=== PATIENT | female | born 2005 ===

== ENCOUNTER → 2025-03-09 23:59 | Outpatient (BNV) | payer OTHER, SELFPAY ==
--- NOTE | 2025-03-11 10:04 | MHC.OFFVIS ---
Intake Visit Reasons: follow up HPI Comments Details: Lois stops me and states that student needs to see the nurse, even though no orientation done.? Has a lot of coughing and runny nose - directed to do covid test and when she comes to my office this is negative.? She is due in May and states that she is having contractions.? She states later in the visit that she has been trying to hydrate and is drinking a lot but it is not stopping the contractions,? she worries that her scar will open.? She is coughing a lot loose coughing,? states her daughter is sick at home in the care of her who is not sick.? She feels chills intermittently hot/cold - she is afebrile 98.5.? states she had asthma as a child but not since then - her lungs are clear - she has a cramping while sitting and wait to move. She states also that she is getting sciatic from his kicking.? She was dizzy upon standing.? She state that she called [facility] and they told her that they don?t have any openings- that someone would call her back before 5 but if there?s a problem she should go to the ER.? She was excused to go home and rest and continue to hydrate but after one hour if contractions continue she should go to 2.? She agrees O: She appears mostly comfortable - though coughing and not feeling well - when she is having a ?contraction? - she is grimacing and holding her lower pubic area and her left side back.? Lungs are clear, color is good - covid screen negative.? 98.5.? A: w/ URI symptoms, cramping intermittently continues -? P: she is to go home and likely go to as she is already pretty well hydrated. She has Tylenol and other supplies/food at home.? She states that the feeling she is having is similar to her daughter?s labor - and she is worried so was advised to go to ER rather than wait too long.? is at home for support. Review of Systems Const All systems reviewed & are unremarkable except as noted in HPI and below Reports as per HPI and Reports no additional complaints Eyes Reports no additional complaints ENT Reports as per HPI and Reports Normal hearing present Card Reports no additional complaints Resp Reports chest congestion and Reports cough Reports no additional complaints Musc Reports no additional complaints Skin/Breast Reports system reviewed and no additional complaints, except as documented Neuro Reports no additional complaints and Reports Normal hearing present Psych Reports no additional complaints Physical Exam afebrile Const Other: mostly comfortable - no serious distress, but she is coughing and has a runny nose. when having contraction - holding lower pubic area and lower left side back General: cooperative Nutritional Appearance: average body habitus Orientation/consciousness: patient oriented x3 HEENT Ears: hearing grossly normal bilaterally General nose exam: Nasal discharge present purulent Face and sinus: Yes sinuses nontender Mouth: Normal oral and palatal mucosa present Teeth and gingiva: dentition normal Throat: Yes posterior oropharynx normal Resp Effort & Inspection: normal respiratory effort, able to speak in complete sentences and Actively coughing (loose - no wheezing) Quality: actively coughing Cardio Rate: regular rate Rhythm: regular rhythm Other: she had a contraction like feeling when she was leaving the office - before standing up, I could not feel any hardening of uterus but instructed her to reach out a gain to her midwives Skin General skin exam: no rashes or lesions noted Neuro General: patient oriented x3 Cranial nerves: Yes Normal hearing present Psych Appearance: grossly normal Assessment & Plan Assessment & Plan (1) Upper respiratory infection: Code(s): J06.9 - Acute upper respiratory infection, unspecified Category: Medical (2) Pelvic pain during in third trimester, antepartum: Code(s): O26.893 - Other specified related conditions, third trimester; R10.20 - Pelvic and perineal pain unspecified side Category: Medical Plan 1) sent home to rest and tylenol if needed and continue to hydrate 2)if contractions continue - she will go to [facility] ob ER. she knows where it is Coding Level of Care Code New Pt Level 4 (20320) Diagnoses Upper respiratory infection J06.9 Pelvic pain during in third trimester, antepartum O26.893; R10.20 Additional Codes PHQ-9 - 04338 - PHQ-9 Billing: Yes ([id number]) Time Spent (min) 45 Comment extra counseling and coordinated care w onsite patient support partner PHQ-9 Over the last 2 weeks, how often have you been bothered by any of the following problems? 1. Little interest or pleasure in doing things: not at all 2. Feeling down, depressed, or hopeless: not at all 3. Trouble falling or staying asleep, or sleeping too much: not at all 4. Feeling tired or having little energy: not at all 5. Poor appetite or overeating: not at all 6. Feeling bad about yourself - or that you are a failure or have let yourself or your family down: not at all 7. Trouble concentrating on things, such as reading the newspaper or watching television: not at all 8. Moving or speaking so slowly that other people could have noticed. Or the opposite - being so fidgety or restless that you have been moving around a lot more than usual: not at all 9. Thoughts that you would be better off or of hurting yourself in some way: not at all Total score: 0 Depression Screening Interpretation: Negative Depression Screening Done: Yes 73811 - PHQ-9 Billing: Yes Source: Developed by Drs. Adrian Fallon, Olivia Layne, Deon Strong and colleagues, with an educational john from [facility]. CRAFFT Screening Tool PART A: In the PAST 12 MONTHS, did you: Drink any alcohol (more than few sips)? (Do not count sips of alcohol taken during family or zoroastrian events.): No Smoke any marijuana or hashish?: No Use anything else to get high? (includes illegal drugs, over the counter/prescription drugs, or things that you sniff/mora?): No
== END ==
PROVIDERS: PCP Nurse Practitioner Family; Visit Provider Nurse Practitioner Family
DX: J06.9 Acute upper respiratory infection, unspecified (principal); O26.893 Other specified pregnancy related conditions, third trimester; R10.20 Pelvic and perineal pain unspecified side
CPT/HCPCS: 96127; 99204

== ENCOUNTER → 2025-03-26 10:33 | Outpatient (BNV) | payer OTHER, SELFPAY ==
--- NOTE | 2025-03-26 10:33 | A.OFFVIS_ITS ---
Intake Visit Reasons: Amb Documentation HPI Comments Details: student presented yesterday w/ and bad back pain. she was seeing ob later in the day so was not officially seen - today she is coming to [facility] and for orientation that wasn't done bc she was sick when first saw me. states that they gave her rx for belly band but can't find a place that has them. she forgot the name of the second place( [facility] - ) so this was given and written for her. she states that mostly her health is good. she had asthma when she was young but hasn't needed a pump since she was 10 - sometimes she thinks it's happening but hasn't needed a pump. she will see me if needs - we decided against giving her a pump as it seems that she is diagnosing shortness of breath w/ as asthma and I am concerned about over usage... she is on iron and prenatals and ?some heartburn medicaiton she doesn't know name of she had a csect w/ last as is hoping to have a but she will be having usn soon to see if the placenta has moved up - was low and if it stayed there she would need to have c/s which she dreads because found the last one very hard. PMH: asthma depression - was hospitalized once for this but feels that moving out from her mothers home helped her with her mood a lot - she now lives w/ her of 1 year (together 2) and finds that he's a good man better than her mother and all the other men she dated. they have a 1 year old girl at home and sshe is now due in may. she finds that if she stays busy, writes when she's struggling and stays off csocial media she feels generally much better. hormonal but manageing well [facility] - waiting to hear from adult clinic ETOH: minimal - doesn't like that much CIG: no Cannabis : used to before her daughter was born but hasn't had any since then. PFSH Medical History (Updated 03/26/25 @ 10:47 by ELODIA Fleming) Family history of sickle cell disease History of asthma Family History (Updated 03/26/25 @ 10:44 by ELODIA Fleming) Mother Diabetes HTN (hypertension) Daughter No problems noted. Sister No problems noted. Sister No problems noted. Sister No problems noted. Sister No problems noted. Sister No problems noted. Sister Sickle cell anemia Brother No problems noted. Brother No problems noted. Brother No problems noted. Brother No problems noted. Review of Systems Const Details: Counseling visit: All systems reviewed & are unremarkable except as noted in HPI and below Reports as per HPI Resp Reports as per HPI GI Reports as per HPI Musc Reports as per HPI Neuro Reports as per HPI Psych Reports as per HPI Physical Exam Const General: cooperative, healthy appearing and no acute distress Nutritional Appearance: well nourished Orientation/consciousness: oriented to person Limitations: no limitations HEENT Other: wnl Eyes Other: wnl Chest Other: easy breathing Resp Effort & Inspection: able to speak in complete sentences Skin Other: normal in appearance Neuro General: oriented to person Psych Other: see HPI Mental Status: mental status grossly normal Speech and movement: Clear speech present Attitude: cooperative Thought process: Normal thought process present Assessment & Plan Assessment & Plan (1) related back pain in third trimester, antepartum: Code(s): O26.893 - Other specified related conditions, third trimester; M54.9 - Dorsalgia, unspecified Category: Medical (2) Anemia affecting in third trimester: Code(s): O99.013 - Anemia complicating , third trimester Category: Medical (3) Counseling and coordination of care: Code(s): Z71.89 - Other specified counseling Category: Medical Plan teaching and support to find medical supplies. counseling and coord care Coding Level of Care Code Est Pt Level 4 (49769) Diagnoses related back pain in third trimester, antepartum O26.893; M54.9 Anemia affecting in third trimester O99.013 Counseling and coordination of care Z71.89 Time Spent (min) 30 Comment counseling and coord care
== END ==
PROVIDERS: PCP Nurse Practitioner Family; Visit Provider Nurse Practitioner Family
DX: O26.893 Other specified pregnancy related conditions, third trimester (principal); M54.9 Dorsalgia, unspecified; O99.013 Anemia complicating pregnancy, third trimester; Z71.89 Other specified counseling
CPT/HCPCS: 99214